=== PATIENT | female | born 1990 | race Caucasian/White ===

== ENCOUNTER → 2017-04-05 | Outpatient (CLI) | payer BC | LOC: ZCOL.LAB 17:29 | DX: J32.0 Chronic maxillary sinusitis (principal) ==

== ENCOUNTER 2018-12-22 16:39 | Outpatient (CLI) | payer BC ==
[2018-12-22] VITALS (8 sets, daily range): BP systolic 122–147; BP diastolic 63–86; PULSE 75–88; TEMP 97.7
[~2018-12-22] VITALS: Ht 175.3 cm; Wt 116.8 kg
--- NOTE | 2018-12-22 17:00 | NUR ---
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 Patient c/o headache, but states that she hasn't taken anything for it. She denies visual changes. Mild edema noted to bilateral lower feet, ankles and hands. Plan of care reviewed with patient. Patient changed into gown and wedged left in bed. EFMs explained and applied. FHR 135 bpm and reactive. No CTX per toco or patient reports. Blood pressure: 141/82. Dr. Contreras on unit and updated.
--- NOTE | 2018-12-22 17:20 | NUR ---
Dr. Contreras at bedside, reviews FHR tracing and blood pressure readings. Discusses plan of care with patient. New orders received.
--- NOTE | 2018-12-22 17:45 | NUR ---
1743 - 6mg dexamethasone given IM per orders. 1747 - 200mg labetelol and 1000mg of tylenol given PO per orders.
[2018-12-22 17:51] LABS: BASO % 0.3 % (0.0-2.0); EOS # 0.2 (0.0-0.7); GRAN # 10.5 (1.4-6.5); GRAN % 69.3 % (42.2-75.2); HEMATOCRIT 41.4 % (37.0-47.0); LYMPH % 19.7 % (20.0-51.0); MEAN CELL VOLUME 83 fl (80.0-100.0); MEAN CORPUSCULAR HEMOGLOBIN 28 pg (27.0-31.0); MEAN CORPUSCULAR HGB CONC 34 g/dl (33.0-37.0); MEAN PLATELET VOLUME 11.7 fl (7.4-10.4); MONO # 1.3 (0.1-0.6); MONO % 8.5 % (1.7-9.3); PLATELET COUNT 181 K/mm3 (130-400); RED BLOOD COUNT 4.98 M/mm3 (4.10-5.30); REDCELL DISTRIBUTION WIDTH-CV 13.7 % (11.5-14.5)
[2018-12-22 18:00] LABS: ALBUMIN 3.5 gm/dL (3.5-5.0); BILIRUBIN,TOTAL 0.2 mg/dL (0.0-1.0); CALCIUM 9.2 mg/dL (8.4-10.2); CREATININE, serum 0.56 (0.52-1.25); POTASSIUM 3.8 mmol/L (3.4-5.0); TOTAL PROTEIN 6.5 gm/dL (6.4-8.2)
--- NOTE | 2018-12-22 18:53 | NUR ---
called and updated on pts status. Discharge orders with discharge instructions received. Plan of care and new orders explained to pt and who verbalize understanding. Pt off monitors and to change into clothes. 1914: Discharge instructions explained again to pt and who verbalize understanding. Pt ambulatory off unit with spouse.
[2018-12-23] MEDS ORDERED: TRANDATE 100MG100 MG PO (07:09)
[2018-12-24] MEDS ORDERED: ZANTAC 150MG T150 MG PO (07:25)
== END 2018-12-22 19:15 | disposition home or self-care (01) ==
LOC: LDRO 16:39
PROVIDERS: Obstetrics & Gynecology
DX: O13.3 Gestational [pregnancy-induced] hypertension without significant proteinuria, third trimester (principal); Z3A.34 34 weeks gestation of pregnancy
CPT/HCPCS: J1100

== ENCOUNTER 2018-12-23 06:45 | Outpatient (CLI) | payer BC ==
[~2018-12-23] VITALS: Ht 175.3 cm; Wt 116.6 kg
--- NOTE | 2018-12-23 06:54 | NUR ---
Pt arrives on unit ambulatory for dexamethasone injection. EFM and toco applied. VSS. Admission assessment completed. Reactive FHR strip. Dexamethasone 6mg given IM. See EMAR. Pt tolerated well. Taken off monitors. Discharge instruction given. Will return tonight for repeat injection. No questions or concerns at this time. Leaves unit ambulatory.
[2018-12-23] MEDS ORDERED: TRANDATE 100MG100 MG PO (07:09)
--- NOTE | 2018-12-23 19:00 | NUR ---
184- Patient here for 3rd dose of Dexamethasone. EFM and TOCO on and tracing. Patient denies any changes from this AM's visit. 1904- EFM and TOCO off per protocol. Dexamethasone 6mg given IM in right buttock without problem. 1909- Patient ambulatory off unit. Will return in AM for 4th dose. FYI- Recurring Account NOT set up until after discharge of 3rd visit.
[2018-12-24] MEDS ORDERED: ZANTAC 150MG T150 MG PO (07:25)
== END 2018-12-23 19:10 | disposition home or self-care (01) ==
LOC: LDRO 06:45
DX: O36.8330 Maternal care for abnormalities of the fetal heart rate or rhythm, third trimester, not applicable or unspecified (principal); Z3A.34 34 weeks gestation of pregnancy
CPT/HCPCS: J1100

== ENCOUNTER 2018-12-24 08:15 | Outpatient (RCR) | payer BC ==
[~2018-12-24] VITALS: Ht 176.5 cm; Wt 116.6 kg
--- NOTE | 2018-12-24 06:40 | NUR ---
Presents to labor and delivery for dexamethasone injection. heart monitor on. Denies any contractions at this time.
--- NOTE | 2018-12-24 07:15 | NUR ---
Dexamethasone injection given to left glueteal as ordered. Denies any contractions. 0745 Monitor strip shown to Dr. Rodriguez. Says to given some juice and daniel crackers. 0815 Dismissed to home with instructions. Alert, ambulatory, stable.
[~2018-12-24 08:15] MED LIST: TRANDATE 100MG100 MG PO; ZANTAC 150MG T150 MG PO
[2019-01-18] MEDS ORDERED: PRENATAL MVI (07:15)
[2019-01-18] MEDS ORDERED: TRANDATE 200MG200 MG PO (07:15)
[2019-01-20] MEDS ORDERED: IBU600 MG PO (08:27)
== END 2019-01-20 16:43 | disposition home or self-care (01) ==
LOC: LDRO 08:15
DX: O16.3 Unspecified maternal hypertension, third trimester (principal); Z3A.34 34 weeks gestation of pregnancy
CPT/HCPCS: J1100

== ENCOUNTER 2019-01-18 06:49 | Inpatient (IN) | payer BC ==
[~2019-01-18] VITALS: Ht 177.8 cm; Wt 119.1 kg
[2019-01-18] VITALS (64 sets, daily range): BP systolic 134–177; BP diastolic 72–111; PULSE 60–96; TEMP 97.3–99.1
--- NOTE | 2019-01-18 07:00 | NUR ---
Pt arrives on unit ambulatory with spouse for induction of labor. G2L0 at 37.6 for preeclampsia. Changed into clean gown. EFM and toco applied. VSS. Pt denies regular contractions, LOF, vaginal bleeding and reports good movement. IV started in LH. Labs drawn. LR infusing. Admission assessment completed. Consents signed. Pt updated on POC. Safety reviewed. Bed locked in low position. Call light within reach. No questions or concerns at this time.
[2019-01-18] MEDS ORDERED: PRENATAL MVI (07:15)
[2019-01-18] MEDS ORDERED: TRANDATE 200MG200 MG PO (07:15)
[2019-01-18 07:58] LABS: BASO % 0.2 % (0.0-2.0); EOS # 0.1 (0.0-0.7); EOS % 1.1 % (0-4.0); GRAN # 8.6 (1.4-6.5); HEMATOCRIT 42.5 % (37.0-47.0); HEMOGLOBIN 14.5 g/dl (12.5-16.0); LYMPH # 2.3 (1.2-3.4); LYMPH % 18.7 % (20.0-51.0); MEAN CELL VOLUME 83 fl (80.0-100.0); MEAN CORPUSCULAR HEMOGLOBIN 28 pg (27.0-31.0); MEAN CORPUSCULAR HGB CONC 34 g/dl (33.0-37.0); MEAN PLATELET VOLUME 12.8 fl (7.4-10.4); MONO # 1.1 (0.1-0.6); MONO % 8.8 % (1.7-9.3); PLATELET COUNT 176 K/mm3 (130-400); RED BLOOD COUNT 5.11 M/mm3 (4.10-5.30); REDCELL DISTRIBUTION WIDTH-CV 13.8 % (11.5-14.5)
--- NOTE | 2019-01-18 08:10 | NUR ---
Dr. Contreras at bedside with ultrasound. Confirms vertex position. Orders for CMP. Pt updated on POC. Bed locked in low position. Call light within reach. No questions or concerns at this time.
[2019-01-18 08:38] LABS: ALBUMIN 3.5 gm/dL (3.5-5.0); BILIRUBIN,TOTAL 0.2 mg/dL (0.0-1.0); CALCIUM 9.6 mg/dL (8.4-10.2); CREATININE, serum 0.71 (0.52-1.25); POTASSIUM 3.9 mmol/L (3.4-5.0); TOTAL PROTEIN 6.4 gm/dL (6.4-8.2)
--- NOTE | 2019-01-18 09:25 | NUR ---
RN at bedside. Late decelerations noted. Pt repositioned LL. LR bolus infusing. Moderate variability. Accelerations noted.
--- NOTE | 2019-01-18 10:50 | NUR ---
Pt sitting upright for epidural placement. Difficulty tracing FHR due to maternal position. FHR audilbe. RN at bedside adjusting monitors. 1106-Test dose administered by Lindsay Moore CRNA. No adverse effects noted. See anesthesia record. 1110-Pt repositioned WL. FHR tracing. Moderate variability with accelerations. No decels. Pt updated on POC. Safety reviewed. Bed locked in low position. Call light within reach. No questions or concerns at this time.
--- NOTE | 2019-01-18 13:30 | NUR ---
RN at bedside adjusting monitors. Difficulty tracing FHR. FHR audible.
--- NOTE | 2019-01-18 18:00 | NUR ---
Pt sitting up for epidural placement. This RN at bedside adjusting monitors. FHR audible. 1628-Test dose administered by Lindsay Moore CRNA. No adverse effects noted. See anesthesia record.
--- NOTE | 2019-01-18 19:00 | NUR ---
183 - Pt positioned to wedge left after epidural placement. 185 - SVE 6/90/0. Recurrent variable decelerations down to 100-120 bpm noted. Pt repositioned to right lateral.
--- NOTE | 2019-01-18 19:35 | NUR ---
Dr. Contreras at bedside for SVE and to review plan of care. SVE 6-7//+1. Recurrent variable decelerations down to 90 - 110 bpm noted. Pt repositioned to high fowlers. Pitocin decreased to 14 mu/min per Dr. Contreras.
--- NOTE | 2019-01-18 20:00 | NUR ---
1954 - Recurrent variable decelerations down to [address] Contreras on unit reviewed strip. Verbal orders to decrease pitocin to 7 mu/min. 1999 - Recurrent variable decelerations continue. Verbal orders by Dr. Contreras to turn off pitocin.
--- NOTE | 2019-01-18 20:45 | NUR ---
Dr. Contreras at bedside for SVE and to review plan of care. SVE unchanged /+1. Continueing plan of care at this time. See physician notification.
--- NOTE | 2019-01-18 22:00 | NUR ---
SVE /+1. Dr. Contreras called unit for update, see physician notification.
--- NOTE | 2019-01-18 22:45 | NUR ---
Pitocin increased to 4 mu/min.
--- NOTE | 2019-01-18 23:00 | NUR ---
Recurrent variable decelerations down to 90 - 100 bpm. SVE 7-8/90/+1.
--- NOTE | 2019-01-18 23:10 | NUR ---
Recurrent variable decelerations down to 90 bpm. Pt repositioned to left lateral. No improvement with decelerations. Pitocin decreased to 2 mu/min at 2315.
[2019-01-19] VITALS (27 sets, daily range): BP systolic 127–165; BP diastolic 76–105; PULSE 81–117; TEMP 97.9–98.4
--- NOTE | 2019-01-19 01:52 | NUR ---
Dr. Contreras at bedside for SVE. Cervix /+2. When repositioning patient back to high fowlers, deceleration audible down to 90. Pt repositioned to right lateral. Return to baseline of 125 bpm after 5 minutes.
--- NOTE | 2019-01-19 03:00 | NUR ---
SVE complete/+2. Pt educated on pushing techniques, verbalized understanding. Pt positioned into lithotomy position. 0308 - Initial push at this time. Variable deceleration with push down to 70 bpm. Slow to return to baseline. Wedge placed beneath R hip.
--- NOTE | 2019-01-19 03:45 | NUR ---
0320 - Pt pushing well with contractions. Ramos catheter removed at this time. 50 mL chioma urine. 0330 - Pt continues to push well with contractions. Dr. Contreras called for delivery. Nursery updated. 0335 - Dr. Contreras gowned and gloved at perineum. 0340 - Late deceleration after push down to 90 bpm for 1 minute. Large crown 0342 - Late deceleration after pushing down to 90 bpm for 2 minutes. 0345 - Spontaneous vaginal delivery of viable baby girl. Baby vigorous at perineum. placed on mothers abdomen, care of assumed to Nursery RN Daniella Danielson. Cord clamped by Dr. Contreras and cut by FOB. Pitocin off. Cord blood obtained. 0348 - Spontaneous delivery of intact placenta. Fundal massage by Dr. Contreras. Pitocin restarted at 333 mL/hr per protocol. 0400 - Second degree perineal laceration repaired by Dr. Contreras. Pericare provided. New chux pad beneath patient. Ice pack applied to perineum. Plan of care reviewed with patient. Pt repositioned in bed to high fowlers. recovery started.
--- NOTE | 2019-01-19 12:00 | NUR ---
6273 Assist patient with . Does well.
--- NOTE | 2019-01-19 16:30 | NUR ---
Rests in bed, alert. Visits with friends.
[2019-01-20 07:50] LABS: HEMATOCRIT 35.5 % (37.0-47.0); HEMOGLOBIN 11.8 g/dl (12.5-16.0)
[2019-01-20] MEDS ORDERED: IBU600 MG PO (08:27)
[2019-01-20 08:28] VITALS: BP 132/74; PULSE 84; TEMP 97.6
[2019-01-20 16:06] VITALS: BP 130/76; PULSE 76; TEMP 98.1
== END 2019-01-20 16:45 | disposition home or self-care (01) | DRG 807 ==
LOC: LDR 06:49 → OB 09:39
PROVIDERS: ADMIT Obstetrics & Gynecology
PROC: 10E0XZZ Delivery of Products of Conception, External Approach (ICD-10-PCS; principal; 2019-01-18)
PROC: 10907ZC Drainage of Amniotic Fluid, Therapeutic from Products of Conception, Via Natural or Artificial Opening (ICD-10-PCS; 2019-01-18)
PROC: 3E033VJ Introduction of Other Hormone into Peripheral Vein, Percutaneous Approach (ICD-10-PCS; 2019-01-18)
DX: O14.03 Mild to moderate pre-eclampsia, third trimester (principal); Z37.0 Single live birth; O99.343 Other mental disorders complicating pregnancy, third trimester; F41.9 Anxiety disorder, unspecified; O99.214 Obesity complicating childbirth; O70.1 Second degree perineal laceration during delivery; O99.62 Diseases of the digestive system complicating childbirth; K21.9 Gastro-esophageal reflux disease without esophagitis; Z3A.37 37 weeks gestation of pregnancy
CPT/HCPCS: J2405; J2590; J7120

== ENCOUNTER → 2019-02-28 | Outpatient (CLI) | payer BC ==
[~2019-02-28] MED LIST changes: +IBU600 MG PO; +PRENATAL MVI; +TRANDATE 200MG200 MG PO
--- NOTE | 2019-02-28 17:36 | NUR ---
Pt, Janelle Jenkins, presents to walk-in clinic with 6 week old baby girl, Leslie Jenkins for a evaluation and concerns that baby is gassy in the evenings recently. Leslie was born on [birth year] by and weighed 6#15.8oz (3170 gms). Today her weight is 10#0.5oz (4550 gms). Pt reports Leslie's feedings have decreased go only about 5-10 min on one breast per feeding and she seems to have more stomach ache/gas problems, especially in the evening. Voids, stools, and weight gain are all WNL. After for a short while, Shila had a weight gain of 2.8oz. She did not settle down and relax after feeding, but also rejected the breast when offered several different times while in clinic. Discussed with pt that she likely has a high milk supply that causes the fast feeding. Over supply may be an underlying factor in the stomach ache; discussed block feeding to help manage over supply and handout provided about lactose overload. Pt comforted to know Leslie is not "wrong" and that she may be able to work with information provided and manage milk supply. POC: breastfeed ad deandre, consider block feeding, reviewe lactose overload information. F/U: clinic as desired, or as scheduled with Dr. Angel. Questions invited and answered.
== END ==
LOC: LAC 10:01
DX: Z39.1 Encounter for care and examination of lactating mother (principal); Z71.89 Other specified counseling